=== PATIENT | male | born 1980 | race Two or more races ===

== ENCOUNTER 2017-08-01 03:01 | Emergency (ER) | payer SELFPAY ==
[~2017-08-01] VITALS: Ht 177.8 cm; Wt 95.3 kg
[2017-08-01] MEDS ORDERED: TETANUS-DIPTH-ACEL PERTUSSIS 0.5ML SYRG IM ONE (04:30)
[2017-08-01] MEDS ORDERED: cefTRIAXone W LIDOCAINE 500 MG IM IM ONE (05:15)
[2017-08-01 05:30] VITALS: BP 108/92
== END 2017-08-01 06:12 ==
LOC: EDBD 03:01 → ER 03:01 → MERGE 03:01 → ER 06:12
DX: S01.01XA Laceration without foreign body of scalp, initial encounter (principal); X58.XXXA Exposure to other specified factors, initial encounter; Y93.89 Activity, other specified; Y92.89 Other specified places as the place of occurrence of the external cause; Y99.8 Other external cause status
CPT/HCPCS: 12002; 70450; 72125; 90715; J0696